=== PATIENT | male | born 1950 | race Caucasian/White ===

== ENCOUNTER 2020-05-05 09:01 | Emergency (ER) | payer OTHER ==
[~2020-05-05] VITALS: Ht 170.2 cm; Wt 90.3 kg
[~2020-05-05 09:01] MED LIST: ACETAMINOPHEN-1 EAC1 PO; ACETAMINOPHEN650 M5 PO; ALEVE220 MG PO; ASTEPRO NASAL; CYCLOBENZAPRINE10 MG PO; DULERA 200 MCG/13 GM INH; DYMISTA NASAL S23 GM NASAL; FISHOIL; HYDROCODON-ACE1 EAC7 PO; MUCINEX600 MG PO; MULTIVITAMINS; MULTIVITAMINS PO; NABUMETONE 500500 M2 PO; NABUMETONE 750750 M1 PO; NEURONTIN 300300 M1 PO; NEURONTIN 300M300 M2 PO; NEURONTIN600 MG PO; NORCO 10-325 T1 EACH PO; NORCO 5-325 TA1 EACH PO; OXYCONTIN10 M1 PO; PAIN & FEVER325 MG PO; PREDNISONE50 MG PO; PROAIR HFA8.5 GM IH; PROAIR HFA8.5 GM INH; QVAR HFA 880 MCG/UN1; QVAR HFA 880 MCG/UN1 INH; QVAR INH; QVAR8.7 G1 INH; RELAFEN750 MG PO; SINGULAIR 10 MG10 M1 PO; VITAMIN D-32000 UNIT PO; XOPENEX HFA15 GM INH; XOPENEX0.31 MG/3 IH; XOPENEX0.31 MG/3 INH; XOPENEX0.63 MG/3 IH
[2020-05-05 09:31] LABS: URINE BILIRUBIN NEGATIVE (Negative); URINE BLOOD TRACE (Negative); URINE CLARITY CLEAR; URINE COLOR YELLOW; URINE GLUCOSE-RANDOM* NEGATIVE (Negative); URINE KETONES NEGATIVE (Negative); URINE LEUKOCYTES NEGATIVE (Negative); URINE NITRITE NEGATIVE (Negative); URINE PROTEIN (DIPSTICK) NEGATIVE (Negative); URINE SPECIFIC GRAVITY <= 1.005 (1.005-1.035); URINE UROBILINOGEN 0.2 E.U./dl (0.2-1.0)
[2020-05-05 09:49] LABS: ABSOLUTE NEUTROPHILS 5.4 thou/uL (1.4-8.2); BASOPHILS 0.9 % (0.0-2.0); EOSINOPHILS 2.2 % (0.0-3.0); HEMATOCRIT 45.7 % (42.0-52.0); HEMOGLOBIN 15.2 gm/dL (14.0-18.0); LYMPHOCYTES 17.9 % (24.0-44.0); MCH 31.8 pg (26.0-34.0); MCHC 33.3 g/dL (28.0-37.0); MCV 95.7 fL (80.0-100.0); MONOCYTES 8.4 % (1.0-8.0); PLATELET COUNT 236 thou/uL (150-400); POLYS 70.6 % (36.0-66.0); RBC 4.78 mil/uL (4.50-6.00); RDW 13.3 % (10.5-14.5); WBC 7.6 thou/uL (4.0-11.0)
[2020-05-05 09:54] LABS: ANION GAP 5 mmol/L (7-16); BUN 16 mg/dL (7-18); CALCIUM 9.3 mg/dL (8.5-10.1); CHLORIDE 104 mmol/L (98-107); CO2 32 mmol/L (21-32); CREATININE 1.1 mg/dL (0.7-1.3); GLUCOSE 109 mg/dL (74-106); POTASSIUM 4.4 mmol/L (3.5-5.1); SODIUM 141 mmol/L (136-145)
[2020-05-05 10:04] LABS: ALBUMIN 3.9 g/dL (3.4-5.0); AMYLASE 49 U/L (25-115); DIRECT BILIRUBIN 0.1 mg/dL (<0.1-0.2); LIPASE 107 U/L (73-393); SGOT 13 U/L (15-37); SGPT 27 U/L (16-63); TOTAL BILIRUBIN 0.8 mg/dL (0.2-1.0); TOTAL PROTEIN 7.5 g/dL (6.4-8.2); TROPONIN-I <0.06 ng/mL (<0.06)
[2020-05-05] MEDS ORDERED: NAPROSYN500 MG PO (10:32)
[2020-05-05 10:50] VITALS: BP 131/71
--- NOTE | 2020-05-05 16:04 | EKG ---
[address] [address] ELECTROCARDIOGRAM REPORT Name: JANELL BRAN [id number] Admission: 05/05/20 Attend Phys: Discharge: 05/05/20 Date of : 52 Report #: [id number] [facility] ED Test Date: 2020-05-05 Test Time: 09:21:41 Pat Name: JANELL BRAN Department: Room: Gender: M Manager [employer]: : 1950 Requested By: Hudson Sanchez Order Number: [id number] MD: Jameel Kelly Measurements Intervals [place] Rate: 78 P: 50 DE: 188 QRS: 9 QRSD: 98 T: 32 QT: 360 QTc: 411 Interpretive Statements Sinus rhythm Compared to ECG 07/31/2015 10:35:37 No significant changes Electronically Signed On 05-05-2020 16:03:51 TELEHEALTH COORDINATOR by Jameel Kelly [email or web address] <ELECTRONICALLY SIGNED> By: Jameel Kelly MD, [facility] 05/05/20 1603 0921 0 Jameel Kelly MD, FACC /EPI
== END 2020-05-05 10:41 | disposition home or self-care (01) ==
LOC: ER 09:01
PROVIDERS: Emergency Medicine
DX: K44.9 Diaphragmatic hernia without obstruction or gangrene (principal); K55.069 Acute infarction of intestine, part and extent unspecified; J44.9 Chronic obstructive pulmonary disease, unspecified; Z79.899 Other long term (current) drug therapy